=== PATIENT | female | born 1980 | race American Indian/Alaskan Native ===

== ENCOUNTER 2016-12-05 00:15 | Emergency (ER) | payer SELFPAY ==
[2016-12-05 01:19] VITALS: TEMP 97.7
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
[2016-12-05 03:39] VITALS: BP 122/76; PULSE 54; RESP 16; O2SAT 100
--- NOTE | 2016-12-05 09:22 | RAD ---
PROCEDURE: Radiographs of the Lumbar Spine. HISTORY: back pain COMPARISON: No prior. FINDINGS: BONES: Normal alignment. No listhesis. No fracture. DISC SPACES: Normal disc heights throughout. OTHER FINDINGS: None. IMPRESSION: Unremarkable radiographs of the lumbar spine. MRI or CT are available for follow-up of clinically warranted.
== END 2016-12-05 02:35 | disposition home or self-care (01) ==
LOC: ED 00:15
DX: M54.5 Low back pain (principal)